=== PATIENT | male | born 1975 | race Two or more races ===

== ENCOUNTER 2017-06-12 13:24 | Emergency (ER) | payer OTHER ==
[~2017-06-12] VITALS: Ht 167.6 cm; Wt 103.7 kg
[2017-06-12 13:40] VITALS: BP 194/126
[2017-06-12] MEDS ORDERED: PROPARACAINE OPHTH 0.5%, 15ML ONE (14:08)
[2017-06-12] MEDS ORDERED: FLUORESCEIN OPHTHALMIC 1 MG STRIP ONE (14:08)
== END 2017-06-12 14:34 | disposition home or self-care (01) ==
LOC: ED 14:29
DX: B30.9 Viral conjunctivitis, unspecified (principal)
CPT/HCPCS: 99283